=== PATIENT | male | born 1990 | race Caucasian/White ===

== ENCOUNTER 2017-12-21 10:39 | Emergency (ER) | payer OTHER, BC ==
[~2017-12-21] VITALS: Ht 185.4 cm; Wt 156.6 kg
[2017-12-21 10:55] VITALS: TEMP 36.9; Ht 185.4 cm; Wt 156.6 kg
[2017-12-21] MEDS ORDERED: CEFAZOLIN SOD 1000MG/7.5 ML IV PUSH IV STA (11:45)
[2017-12-21] MEDS ORDERED: XYLOCAINE 1%/SOD BICARB 20 ML VIAL INFIL STA (11:45)
[2017-12-21 12:48] VITALS: BP 171/94; PULSE 86; O2SAT 99
[2017-12-21] MEDS ORDERED: CEPH500C PO (12:48)
--- NOTE | 2017-12-21 12:49 | EMERGENCY ROOM VISIT NOTE ---
ED Visit Note First contact with patient: 11:03 Chief Complaint: "Crushed finger". History of Present Illness: This patient is a 27-year-old male who presents to the Emergency Department via private vehicle for evaluation of their left index finger distal laceration. Patient sustained the laceration when his finger was accidentally shut in a car door. They report a moderate amount of bleeding initially. They deny any numbness or tingling into the distal extremity. They report no decreased range of motion of the affected digit. He was sent here from a local urgent care. Tetanus is up-to-date. Medications: As noted below Allergies: None PMH: No pertinent SHx: Patient is employed and lives locally. ROS: All pertinent positive and negative review of systems are appropriately documented in the History of Present Illness. Physical Exam: VITAL SIGNS - Vital signs and nursing notes were reviewed. Stable. GENERAL -27-year-old male appearing his stated age who is in no acute distress. Communicates well with provider and answers questions appropriately. SKIN - There is a 1 cm long laceration noted through the distal portion of the left second digit. The edges gape apart with traction. No foreign bodies appreciated. Upon further examination there are no deep structures including vessel, tendon, or bony structures appreciated however the nail is avulsed. There is no active bleeding noted. MUSCULOSKELETAL - Laceration as described above. +5/5 strength appreciated of the affected digit. Full range of motion of the affected digit. NEUROLOGIC - Spinothalamic tract was found to be intact with ability to discriminate sharp versus dull sensation. No sensory defects of the dorsal column were appreciated utilizing light touch for evaluation. VASCULAR - Capillary refill was brisk. IMAGING: Patient presents with imaging from a local urgent care. This does reveal a distal tuft fracture per my interpretation. Clinical correlation reveals likely open fracture. ED Course: Patient was seen and evaluated by myself. Risks and benefits of performing primary wound closure versus no repair were discussed with the patient who verbalizes understanding. Verbal consent was obtained prior to performing the procedure. 6 cc of 1% buffered lidocaine was used to perform a digital block of the left second digit. The wound was cleansed and prepped in the typical sterile fashion utilizing normal saline and Betadine. The wound was sterilely draped. Once proper anesthetization was established, the wound was further examined and demonstrated no deep involvement. The wound was copiously irrigated with normal saline and Betadine. The wound was closed using 2 simple, 5-0 nylon sutures with the wound edges being well approximated and placing finger nail back in place. Patient tolerated the procedure well. No complications were met. The wound was cleansed and dressed with a Bacitracin dressing. A metal splint was applied to the finger for comfort. I did discuss the case with the on-call orthopedic surgeon, Dr. Arana He recommends follow- up, this is after he was given Ancef, thorough washout, cleansing, dressing, outpatient antibiotics. Patient educated on worrisome symptoms for return visit to the Emergency Department. He'll be discharged with Keflex. He declined pain medication. Patient discharged to home in good condition. In the evaluation and treatment of this patient, the following differential diagnoses were considered: Finger Fracture, Finger Dislocation, Finger Sprain, Finger Contusion, Jersey Finger, or Mallet Finger. Current/Historical Medications Scheduled Cephalexin Monohydrate (Keflex), 500 MG PO QID Allergies Coded Allergies: No Known Allergies (Unverified , 04/06/16) Vital Signs Date Time Temp Pulse Resp B/P (MAP) Pulse Ox O2 Delivery O2 Flow Rate FiO2 12/21/17 12:48 86 18 171/94 99 Room Air 12/21/17 10:55 36.9 76 20 206/115 96 Room Air Medications Administered Medications (Trade) Dose Ordered Sig/Blanca Route Start Time Stop Time Status Last Admin Dose Admin Cefazolin Sodium (Cefazolin 1000mg Iv Push) 1,000 mg NOW STAT IV 12/21/17 11:45 12/21/17 11:47 DC 12/21/17 11:55 1,000 MG Departure Information Impression Primary Impression: Injury, crush, finger Dispostion Home / Self-Care Condition GOOD Prescriptions Cephalexin Monohydrate (Keflex) 500 Mg Cap 500 MG PO QID for 10 Days, #40 CAP Prov: Aniceto Orellana PA-C 12/21/17 Referrals No Doctor, Assigned (PCP) Kevon Arana, DO Patient Instructions My [facility] Additional Instructions Discharge Instructions: You have received 3 sutures on your finger. These sutures are NOT dissolvable and WILL need to be removed by a health care provider in 14 days. You can return to the Emergency Department or have orthopedics to have the sutures removed. Please wear the splint for comfort until the sutures are removed. Please call Dr. Arana to have finger evaluated Proper wound care is essential for adequate wound healing and infection prevention. You can shower and clean the wound with soap and water. Do not scour over the wound, pat dry with a towel. Do not submerse the wound (i.e. bathe or dish wash) until the sutures have been removed. You can use an antibiotic ointment with a dressing over the wound for the next 3-4 days. After this time you may leave the wound dry and open to the air. If crust develops over the wound you can use a Q-tip to apply a 1:1 peroxide:water solution to clean the wound. keflex 500mg every 6 hours for 10 days (antibiotic) to help prevent infection. This can be started tomorrow Look for signs of infection of the wound including: increased pain, swelling, foul discharge, streaking, or increased temperature. If any of these are noticed you should return to the Emergency Department for further assessment and treatment. As with any laceration you may have received nerve damage to the surrounding tissues. This damage may or may not be permanent. You should keep the area covered with sunscreen for the first 6 months to 1 year when at risk for exposure to help minimize scarring. You can also use scar reducing creams or Vitamin E oil to help minimize scarring. For pain control, you can use the following [id number] medicines: - Regular strength (325mg/tab) Tylenol (acetaminophen) 2 tabs every 4-6 hours as needed. Do not exceed 12 tablets in a 24 hour period. Avoid taking more than 3 grams (3000 mg) of Tylenol per day. This includes any other sources of acetaminophen you may take on a regular basis. - Regular strength (200 mg/tab) Advil (ibuprofen) 1-2 tabs every 4-6 hours as needed. Do not exceed a dose of 3200 mg per day. Return to the emergency department if your symptoms worsen despite treatment course outlined above.
== END 2017-12-21 12:58 | disposition home or self-care (01) ==
LOC: C.EDB 10:40 → C.EDD 12:58
DX: S67.191A Crushing injury of left index finger, initial encounter (principal); W23.0XXA Caught, crushed, jammed, or pinched between moving objects, initial encounter